=== PATIENT | female | born 1950 | race Caucasian/White ===

== ENCOUNTER 2017-02-25 12:53 | Outpatient (CLI) ==
[2014-09-08 23:44] VITALS: BMI 21.1
== END 2017-02-25 12:54 | disposition home or self-care (01) ==
LOC: LAB 12:53
PROVIDERS: ATTEND Emergency Medicine
DX: J10.1 Influenza due to other identified influenza virus with other respiratory manifestations (principal)
CPT/HCPCS: 87502

== ENCOUNTER 2017-12-30 11:25 | Outpatient (CLI) ==
[2014-09-08 23:44] VITALS: BMI 21.1
== END 2017-12-30 11:26 | disposition home or self-care (01) ==
LOC: RHC-LAB 11:25
PROVIDERS: ATTEND Nurse Practitioner Family
DX: R50.9 Fever, unspecified (principal)
CPT/HCPCS: 87502